=== PATIENT | female | born 1935 | race Caucasian/White ===

== ENCOUNTER 2016-04-29 12:49 | Outpatient (CLI) | payer MEDICARE, MEDICAID ==
--- NOTE | 2016-04-30 07:26 | CT ---
CT ABDOMEN AND PELVIS WITHOUT CONTRAST 04/29/16 Comparison is made with the prior study of 06/10/14. The lung bases are clear except for some left basilar scarring. The liver, spleen, pancreas, and adr enal glands were unremarkable in appearance within the limitations of a noncontrast study. No renal masses were appreciated on this noncontrast exam. There is a tiny nonobstructing calculus in the low er pole of the right kidney, a finding not present before. 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 It was present before and has not changed in size or appearance. No acute changes were seen in the left kidney, though it is somewhat smaller than the right. The aorta is tortuous and somewhat dilated. It transiently dilates in spots but never reaches an AP diameter more than about 3.3 cm in the mid abdominal region which is comparable to the prior scan. I would note there are some water density structures in the lower right lobe of the liver that are p robably cysts. Collectively, they measure about 3.4 cm in length and have not changed in size or chris earance over the interval. No distention of bowel was seen. There are no inflammatory changes around bowel and no bowel wall th ickening was seen. No free air or free fluid was present. CT of the pelvis shows no pelvic masses or fluid collections. The patient's bilateral hip arthroplas ties largely obscure the urinary bladder and lower portions of the pelvis due to artifact. Degenerat danilo changes are present throughout the lumbar spine. IMPRESSION: 1. Tiny nonobstructing right renal calculus, not present in 2015. 2. Some areas of transient dilation of the aorta with no significant currency exchange specialist time. 3. Other findings as listed above. POS: HOME
== END 2016-04-29 12:50 | disposition home or self-care (01) ==
LOC: BURCT 12:49
PROVIDERS: ATTEND Family Medicine
DX: R31.0 Gross hematuria (principal); N20.0 Calculus of kidney; I77.819 Aortic ectasia, unspecified site
CPT/HCPCS: 74176

== ENCOUNTER 2018-04-28 19:10 | Emergency (ER) | payer MEDICARE, MEDICAID ==
[2018-04-28] MEDS ORDERED: Ondansetron PF 4 MG/2 ML Vial ONE (20:10)
[2018-04-28 20:26] LABS: #Eosinphils 0.1 thou/uL (0.0-0.7); #Lymphocytes 1.1 thou/uL (1.20-3.40); #Monocytes 0.5 thou/uL (0.11-0.59); #Neutrophils 10.1 thou/uL (1.40-6.50); %Basophils 0.1 % (0.0-1.0); %Eosinophils 0.7 % (0.0-10.0); %Lymphocytes 9.4 % (21.0-51.0); %Neutrophils 85.8 % (42.0-75.0); Hemoglobin 15.7 g/dL (12.0-16.0); Mean Corpuscular HGB CONC 31.7 g/dL (32.0-36.0); Mean Corpuscular Hemoglobin 30.4 pg (27.0-31.0); Mean Corpuscular Volume 95.9 fL (78.0-98.0); Mean Platelet Volume 8.3 fL (7.4-10.4); Platelet Count 169 thou/uL (130-400); RBC Distribution Width 12.9 % (11.5-14.5); Red Blood Cell (RBC) Count 5.16 mill/uL (4.20-5.40); White Blood Cell (WBC) Count 11.8 thou/uL (4.8-10.8)
[2018-04-28 20:44] LABS: ALT (SGPT) 17 U/L (8-55); AST (SGOT) 25 U/L (5-34); Albumin 3.8 g/dL (3.4-4.8); Alkaline Phosphatase 79 U/L (40-150); Anion Gap 18 mmol/L (10-20); BUN (Urea Nitrogen) 32 mg/dL (9.8-20.1); Bilirubin, Total 0.6 mg/dL (0.2-1.2); Calc. Creatinine Clearance 0 mL/min (70-130); Calcium 9.1 mg/dL (7.8-10.44); Carbon Dioxide 19 mmol/L (23-31); Chloride 107 mmol/L (98-107); Estimated GFR-MDRD 55; Globulin 2.7 g/dL (2.4-3.5); Glucose 100 mg/dL (83-110); Lipase 7 U/L (8-78); Potassium 3.9 mmol/L (3.5-5.1); Protein, Total 6.5 g/dL (6.0-8.3); Sodium 140 mmol/L (136-145)
[2018-04-28] MEDS ORDERED: metroNIDAZOLE 500 MG/100 ML BAG ONE (21:12)
[2018-04-28] MEDS ORDERED: Vancomycin HCl 25 MG/ML Oral PO SCH (21:30)
[2018-04-28] MEDS ORDERED: Morphine 4 MG/ML VIAL ONE (21:44)
[2018-05-03 07:30] LABS: Norovirus GI Negative (Negative); Norovirus GII Negative (Negative)
== END 2018-04-28 21:45 | disposition short-term general hospital (02) ==
LOC: BURERS 19:10
DX: K52.9 Noninfective gastroenteritis and colitis, unspecified (principal); E86.0 Dehydration; L24.9 Irritant contact dermatitis, unspecified cause; E78.5 Hyperlipidemia, unspecified; I10 Essential (primary) hypertension; F41.9 Anxiety disorder, unspecified; F32.9 Major depressive disorder, single episode, unspecified; Z87.891 Personal history of nicotine dependence; Z79.899 Other long term (current) drug therapy
CPT/HCPCS: 80053; 82274; 83630; 83690; 84443; 85025; 87045; 87046; 87324; 87449; 87798; 87899; 94760; 96361; 96365; 96375; J2270; J2405